=== PATIENT | male | born 1960 | race Caucasian/White ===

== ENCOUNTER 2021-09-13 14:32 | Emergency (ER) | payer OTHER ==
[~2021-09-13] VITALS: Ht 175.3 cm; Wt 85.7 kg
[~2021-09-13 14:32] MED LIST: AMOXICILLIN500 MG PO
[2021-09-13] MEDS ORDERED: NORFLEX100MG PO (20:10)
== END 2021-09-13 20:27 | disposition home or self-care (01) ==
LOC: ER 14:32
DX: R07.89 Other chest pain (principal)

== ENCOUNTER 2021-09-16 18:05 | Emergency (ER) | payer OTHER ==
[~2021-09-16] VITALS: Ht 175.3 cm; Wt 87.1 kg
[~2021-09-16 18:05] MED LIST changes: +NORFLEX100MG PO
== END 2021-09-16 22:52 | disposition home or self-care (01) ==
LOC: ER 18:05
DX: M94.0 Chondrocostal junction syndrome [Tietze] (principal); R07.89 Other chest pain

== ENCOUNTER 2023-10-27 15:51 | Emergency (ER) | payer OTHER ==
[~2023-10-27] VITALS: Ht 165.1 cm; Wt 77.1 kg
[2023-10-27 19:02] LABS: HEMATOCRIT 43.8 % (39.0-48.0); HEMOGLOBIN 14.8 g/dL (13-16.00); MEAN CORPUSCULAR HEMOGLOBIN 30.1 pg (27.00-32.0); MEAN CORPUSCULAR HGB CONC 33.8 g/dl (32.0-36.0); PLATELET COUNT 266 K/uL (150-450); RED BLOOD COUNT 4.92 M/uL (4.00-6.00); RED CELL DISTRIBUTION WIDTH 14.7 % (11.5-14.5)
[2023-10-27 19:05] LABS: PH,URINE 5.5 (5.0-8.0); URINE APPEARANCE Clear; URINE BILIRRUBIN Negative (NEGATIVE); URINE BLOOD Negative; URINE COLOR Dark Yellow; URINE GLUCOSE Negative (NEGATIVE); URINE LEUKOCYTE Negative; URINE NITRATE Negative; URINE PROTEIN Negative (NEGATIVE); URINE UROBILINOGEN 0.2 E.U./dl
[2023-10-27 19:08] LABS: URINE BACTERIA 137.3 uL (0.0-1933); URINE WBC 2.4 uL (0.0-23.2)
[2023-10-27 19:15] LABS: URINE EPITHELIAL CELLS 0.6 uL (0.0-38.8)
[2023-10-27 19:54] LABS: CREATININE SERUM 1.13 mg/dL (0.70-1.30); GFR 65.75; POTASSIUM 3.68 mEq/L (3.5-5.1)
== END 2023-10-27 20:19 | disposition home or self-care (01) ==
LOC: ER 15:51
PROVIDERS: Nurse Practitioner Family
DX: M43.6 Torticollis (principal); Z20.822 Contact with and (suspected) exposure to COVID-19